=== PATIENT | female | born 1975 | race Caucasian/White ===

== ENCOUNTER 2017-04-27 18:25 | Emergency (ER) | payer MEDICAID ==
[~2017-04-27] VITALS: Ht 167.6 cm; Wt 77.1 kg
[2017-04-27 18:31] VITALS: BP 127/71
--- NOTE | 2017-04-27 19:10 | NUR ---
Report recieved from [facility]
--- NOTE | 2017-04-27 19:10 | NUR ---
Pt came to ED c/o chest pain with cough x1 day with the cough lasting x1 week. Pt denies productive cough or fever. No respiratory distress. Pt denies SOB, or Dyspnea. VSS. ER MD aware. Continue to monitor.
[2017-04-27] MEDS ORDERED: ALBUTEROL SULFATE/IPRATROPIU 3 ML SOL IH ONE (19:45)
[2017-04-27] MEDS ORDERED: IBUPROFEN 800 MG TAB PO ONE (20:20)
[2017-04-27 20:47] VITALS: BP 109/55
--- NOTE | 2017-04-27 20:47 | NUR ---
Patient discharged with v/s stable, afebrile, no SOB, and decreased pain. Written and verbal after care instructions given and explained. Patient alert, oriented and verbalized understanding of instructions. Ambulatory with steady gait. All questions addressed prior to discharge. ID band removed. Patient advised to follow up with PMD. Rx of Motrine and Albuterol given. Patient educated on indication of medication including possible reaction and side effects. Opportunity to ask questions provided and answered.
== END 2017-04-27 20:47 | disposition home or self-care (01) ==
LOC: MED 18:25
DX: J20.9 Acute bronchitis, unspecified (principal)
CPT/HCPCS: 71045; 93005; 94640; 94760; 99284; J7620